=== PATIENT | male | born 1930 | race Caucasian/White ===

== ENCOUNTER → 2018-02-06 | Outpatient (CLI) | payer MEDICARE ==
--- NOTE | 2018-02-06 10:00 | RAD ---
EXAM DESCRIPTION: Knee,Right Complete CLINICAL HISTORY: 88 years Male, PAIN IN RIGHT KNEE TECHNIQUE: 4 views of the right knee were performed. COMPARISON: None available. FINDINGS: The visualized bones appear well mineralized. No acute fracture or dislocation. No evidence of suprapatellar joint effusion. The soft tissues appear grossly unremarkable. Mild degenerative changes with enthesopathy changes at the insertion of quadriceps tendon. IMPRESSION: 1. No acute fracture or dislocation/subluxation. 2. Mild tricompartmental osteoarthritic changes. Electronically signed by: Leno Lambert MD 02/06/2018 9:59 AM CDT
--- NOTE | 2018-02-06 10:25 | RAD ---
EXAM DESCRIPTION: Pelvis CLINICAL HISTORY: 88 years Male, PAIN IN RIGHT HIP COMPARISON: None. TECHNIQUE: AP radiograph of the pelvis was performed. FINDINGS: The pelvic ring appears grossly intact on this single AP radiograph. No acute fracture or dislocation. Bilateral sacroiliac joints appear normal. Bilateral hip joints demonstrate mild degenerative changes. The visualized lumbo-sacral spine demonstrates mild degenerative changes. IMPRESSION: The pelvic ring appears grossly intact. No acute fracture or dislocation. Electronically signed by: Leno Lambert MD 02/06/2018 10:24 AM CDT
== END ==
LOC: RAD 08:09
PROVIDERS: ATTEND Orthopaedic Surgery
DX: M17.11 Unilateral primary osteoarthritis, right knee (principal); M25.551 Pain in right hip